=== PATIENT | male | born 1990 | race Caucasian/White ===

== ENCOUNTER 2022-01-31 13:42 | Emergency (ER) | payer OTHER ==
[2022-01-31 14:07] VITALS: TEMP 98.5
--- NOTE | 2022-01-31 15:40 | XR ---
EXAMINATION TYPE: XR abdomen 2V DATE OF EXAM: 01/31/2022 CLINICAL DATA: 31 year-old male abdominal pain, alcohol withdrawal, history of liver failure, PHH COMPARISON: None FINDINGS: Lung bases are clear. No evidence for free intraperitoneal air. No dilated small bowel or air-fluid levels. Scattered air is seen throughout the colon extending dist ally into the rectum. No significant stool burden. No suspicious calcifications identified. IMPRESSION: No evidence for free air or bowel obstruction. No significant stool burden.
[2022-01-31 16:10] LABS: Basophils % (A) 0 %; Eosinophils # (A) 0.4 k/uL (0-0.7); Eosinophils % (A) 4 %; HCT 38.6 % (39.0-53.0); HGB 12.9 gm/dL (13.0-17.5); Lymphocytes # (A) 1.2 k/uL (1.0-4.8); Lymphocytes % (A) 12 %; MCH 34.5 pg (25.0-35.0); MCHC 33.5 g/dL (31.0-37.0); MCV 102.9 fL (80.0-100.0); Macrocytosis Slight; Mean Platelet Volume 9.4; Monocytes % (A) 10 %; Neutrophils # (A) 7.3 k/uL (1.3-7.7); Neutrophils % (A) 72 %; Platelet Count 162 k/uL (150-450); RBC 3.75 m/uL (4.30-5.90); RDW 13.2 % (11.5-15.5); WBC 10.1 k/uL (3.8-10.6)
[2022-01-31 16:12] LABS: ALT 60 U/L (4-49); AST 200 U/L (17-59); African American GFR (CKD) >90 (>60 ml/min/1.73 sqM); Albumin 3.1 g/dL (3.5-5.0); Alcohol <10 mg/dL; Alkaline Phosphatase 318 U/L (38-126); Amylase 95 U/L (30-110); Anion Gap 9 mmol/L; Blood Urea Nitrogen 4 mg/dL (9-20); Calcium 8.1 mg/dL (8.4-10.2); Carbon Dioxide 26 mmol/L (22-30); Chloride 98 mmol/L (98-107); Glucose 94 mg/dL (74-99); Lipase 163 U/L (23-300); Non-African American GFR(CKD) >90 (>60 ml/min/1.73 sqM); Sodium 133 mmol/L (137-145); Total Protein 7.1 g/dL (6.3-8.2)
[2022-01-31 16:17] LABS: Total Bilirubin 15.3 mg/dL (0.2-1.3)
[2022-01-31] MEDS ORDERED: LORazepam 2 MG/ML INJ IV PRN ×3 (16:27)
[2022-01-31] MEDS ORDERED: THIAMINE 100 MG/ML 2 ML VIAL IM STA (16:27)
[2022-01-31] MEDS ORDERED: THIAMINE 100 MG TAB PO SCH (17:30)
[2022-01-31] MEDS ORDERED: SODIUM CHLORIDE 0.9% 1,000 ML IV ONE (17:44)
[2022-01-31] MEDS ORDERED: ONDANSETRON 4 MG/2 ML VIAL IVP STA (17:45)
[2022-01-31] MEDS ORDERED: SODIUM CHLORIDE 0.9% 1,000 ML IV SCH (17:45)
--- NOTE | 2022-01-31 17:45 | ED ---
General Adult HPI - General Chief complaint: Alcohol Stated complaint: Withdrawal Time Seen by Provider: 01/31/22 15:55 Source: patient Mode of arrival: ambulatory Limitations: no limitations - History of Present Illness Initial comments: 31-year-old male with past medical history of asthma, heavy daily alcohol abuse presents to the emergency department from [facility]. He went into [facility] for alcohol detoxification. Staff at the facility noted scleral icterus. He admitted to a history of liver failure and they felt uncomfortable caring for him therefore sent him to our facility for evaluation. He admits to an episode of jaundice 1.5 years ago. Reports he was formally diagnosed with liver failure 2 months ago and follows with a GI doctor out of [facility]. It was recommended that he get on the transplant list however this has not yet been facilitated as the patient continues to drink. He normally drinks a fifth a day +6-7 beers. Reports that his last drink was at 7 AM this morning and he had to "airplane shooters". Patient reports to tremorous, nausea, diaphoresis. Denies chest pain or shortness of breath. No abdominal pain. He admits the jaundice started again 2 weeks ago. No fevers. No other alleviating, precipitating or modifying factors - Related Data Allergies Allergy/AdvReac Type Severity Reaction Status Date / Time cat dander Allergy Unknown Verified 01/31/22 14:07 house dust Allergy Unknown Verified 01/31/22 14:07 Review of Systems ROS Statement: Those systems with pertinent positive or pertinent negative responses have been documented in the HPI. ROS Other: All systems not noted in ROS Statement are negative. Past Medical History Past Medical History: Asthma Additional Past Medical History / Comment(s): liver failure, kidney stones. polyps on gallbladder. History of Any Multi-Drug Resistant Organisms: None Reported Past Surgical History: Tonsillectomy Past Psychological History: Anxiety Smoking Status: Current every day smoker Past Alcohol Use History: Abuse, Heavy Past Drug Use History: Marijuana General Exam Limitations: no limitations General appearance: alert, in no apparent distress Head exam: Present: atraumatic, normocephalic, normal inspection Eye exam: Present: PERRL, EOMI, scleral icterus. Absent: conjunctival injection, periorbital swelling ENT exam: Present: normal exam, mucous membranes moist Neck exam: Present: normal inspection. Absent: tenderness, meningismus, lymphadenopathy Respiratory exam: Present: wheezes (all lung schuler). Absent: respiratory distress, rales, rhonchi, stridor Cardiovascular Exam: Present: normal rhythm, tachycardia, normal heart sounds. Absent: systolic murmur, diastolic murmur, rubs, gallop, clicks GI/Abdominal exam: Present: soft, normal bowel sounds. Absent: distended, tenderness, guarding, rebound, rigid Extremities exam: Present: normal inspection, full ROM, normal capillary refill. Absent: tenderness, pedal edema, joint swelling, calf tenderness Back exam: Present: normal inspection Neurological exam: Present: alert, oriented X3, CN II-XII intact Psychiatric exam: Present: normal affect, normal mood Skin exam: Present: warm, dry, intact, other (jaundice). Absent: rash Course Vital Signs 01/31/22 01/31/22 14:04 16:30 Temperature 98.5 F Pulse Rate 103 H 87 Respiratory 20 15 Rate Blood Pressure 117/71 135/69 O2 Sat by Pulse 100 98 Oximetry Medical Decision Making - Medical Decision Making Upon arrival patient was placed into room 19. History and physical exam was performed. IV access is established and laboratory studies are conducted. Patient was given a liter bolus of normal saline and started on 130 mL/h. He is additionally given Zofran, thiamine and started on Ativan per [facility] protocol. Laboratory studies are reviewed. Patient has macrocytosis. Total bilirubin is 15.3. AST 200. ALT 60. Alk phos 318. Serum alcohol is undetectable. KUB was obtained which demonstrates no evidence of free air or bowel obstruction. I did discuss the case with my hospitalist, Dr. Flores. As we do not have GI on staff he does request that the patient be transferred. I spoke with [facility] as the patient follows with a GI specialist there. Dr. bah is agreeable to accept transfer. COBRA forms initiated and signed. Patient is agreeable to the risks and benefits of transfer. He will be transferred via ambulance in stable condition - Lab Data Result diagrams: 01/31/22 15:47 01/31/22 15:47 Lab Results 01/31/22 01/31/22 Range/Units 15:47 15:47 WBC 10.1 (3.8-10.6) k/uL RBC 3.75 L (4.30-5.90) m/uL Hgb 12.9 L (13.0-17.5) gm/dL Hct 38.6 L (39.0-53.0) % MCV 102.9 H (80.0-100.0) fL MCH 34.5 (25.0-35.0) pg MCHC 33.5 (31.0-37.0) g/dL RDW 13.2 (11.5-15.5) % Plt Count 162 (150-450) k/uL MPV 9.4 Neutrophils % 72 % Lymphocytes % 12 % Monocytes % 10 % Eosinophils % 4 % Basophils % 0 % Neutrophils # 7.3 (1.3-7.7) k/uL Lymphocytes # 1.2 (1.0-4.8) k/uL Monocytes # 1.0 (0-1.0) k/uL Eosinophils # 0.4 (0-0.7) k/uL Basophils # 0.0 (0-0.2) k/uL Macrocytosis Slight Sodium 133 L (137-145) mmol/L Potassium 4.0 (3.5-5.1) mmol/L Chloride 98 (98-107) mmol/L Carbon Dioxide 26 (22-30) mmol/L Anion Gap 9 mmol/L BUN 4 L (9-20) mg/dL Creatinine 0.40 L (0.66-1.25) mg/dL Est GFR (CKD-EPI)AfAm >90 (>60 ml/min/1.73 sqM) Est GFR (CKD-EPI)NonAf >90 (>60 ml/min/1.73 sqM) Glucose 94 (74-99) mg/dL Calcium 8.1 L (8.4-10.2) mg/dL Total Bilirubin 15.3 H* (0.2-1.3) mg/dL AST 200 H (17-59) U/L ALT 60 H (4-49) U/L Alkaline Phosphatase 318 H (38-126) U/L Total Protein 7.1 (6.3-8.2) g/dL Albumin 3.1 L (3.5-5.0) g/dL Amylase 95 (30-110) U/L Lipase 163 (23-300) U/L Serum Alcohol <10 mg/dL Disposition Clinical Impression: Alcohol withdrawal syndrome, Impending delirium tremens, Liver failure Disposition: OTHER INSTITUTION NOT DEFINED Condition: Serious Is patient prescribed a controlled substance at d/c from ED?: No Referrals: None,Stated [Primary Care Provider] - 1-2 days Time of Disposition: 18:20 - Out of Hospital Transfer - Req. Specs Out of Hospital Transfer - Requested Specifics: Other Emergency Center ([facility])
[2022-01-31 18:24] VITALS: BP 141/77; PULSE 81; RESP 16
== END 2022-01-31 18:49 | disposition other institution (70) ==
LOC: EC 13:42
DX: F10.239 Alcohol dependence with withdrawal, unspecified (principal); Z91.09 Other allergy status, other than to drugs and biological substances; K72.90 Hepatic failure, unspecified without coma; J45.909 Unspecified asthma, uncomplicated; F17.200 Nicotine dependence, unspecified, uncomplicated
CPT/HCPCS: 36415; 80053; 82150; 83690; 85025; 80320; 87635; 74019; 99285; 96374; 96375; 96361; 96372; J2060; J3411; J2405